=== PATIENT | male | born 1945 | race Caucasian/White ===

== ENCOUNTER 2022-11-30 11:31 | Day surgery (SDC) | payer OTHER ==
[~2022-11-30 11:31] MED LIST: CARBOPLATIN IVPB ONE; DEXAMETHASONE SODIUM PHOSPHATE 10 MG in SODIUM CHLORIDE 50 ML IVPB ONE; ETOPOSIDE 190 MG in SODIUM CHLORIDE 0.9% 500 ML IV ONE; FOSAPREPITANT DIMEGLUMINE 150 MG in SODIUM CHLORIDE 145 ML IVPB ONE; PALONOSETRON HCL 0.25 MG/5 ML VIAL IVPUSH ONE; SODIUM CHLORIDE 250 ML IV ONE; SODIUM CHLORIDE IVPB ONE
[2022-11-30 13:12] LABS: BASO % 0.7 % (0-2.0); EOS % 0.5 % (0-4.5); HEMATOCRIT 35.5 % (35.4-49); HEMOGLOBIN 11.8 GM/dL (11.7-16.9); LYMPH % 11.5 % (8-40); MCH 30.7 pg (25.7-33.7); MCHC 33.2 g/dl (32.0-35.9); MEAN CELL VOLUME 92.4 fl (80-96); MEAN PLT VOLUME 7.3 fl (7.5-11.1); MONO % 13.9 % (3.8-10.2); NEUT % 73.4 % (42.8-82.8); PLATELET COUNT 440 10^3/uL (134-434); RBC 3.84 M/mm3 (4.00-5.60); RDW 14.3 % (11.9-15.9); WHITE BLOOD COUNT 10.5 K/mm3 (4.0-10.0)
[2022-11-30 13:43] LABS: CALCIUM 8.6 mg/dL (8.5-10.1)
[2022-11-30 13:44] LABS: ALBUMIN 3.1 g/dl (3.4-5.0); BLOOD UREA NITROGEN 24.6 mg/dL (7-18)
[2022-11-30 13:46] LABS: CREATININE 1.5 mg/dL (0.55-1.3)
[2022-11-30 13:47] LABS: BILIRUBIN,DIRECT 0.1 mg/dL (0.0-0.2)
[2022-11-30 13:48] LABS: BILIRUBIN,TOTAL 0.4 mg/dL (0.2-1); TOT PROT 6.9 g/dl (6.4-8.2)
[2022-11-30 18:57] VITALS: RESP 18; TEMP 98.7
[2022-11-30 19:10] VITALS: BP 119/62; PULSE 66
== END 2022-11-30 18:20 | disposition home or self-care (01) ==
LOC: JCHEMO 11:31 → J7W 11:35 → JCHEMO 18:20
PROVIDERS: ATTEND Internal Medicine Hematology & Oncology
DX: Z51.11 Encounter for antineoplastic chemotherapy (principal); C34.01 Malignant neoplasm of right main bronchus
CPT/HCPCS: 36415; 80048; 80076; 85025; 96367; 96375; 96413; 96417; J1453; J2469

== ENCOUNTER → 2022-12-01 18:15 | Day surgery (SDC) | payer OTHER ==
[~2022-12-01 18:15] MED LIST changes: -CARBOPLATIN IVPB ONE; -FOSAPREPITANT DIMEGLUMINE 150 MG in SODIUM CHLORIDE 145 ML IVPB ONE; -PALONOSETRON HCL 0.25 MG/5 ML VIAL IVPUSH ONE; -SODIUM CHLORIDE IVPB ONE
[2022-12-01 18:16] VITALS: TEMP 98.1
[2022-12-01 18:31] VITALS: BP 161/87; PULSE 66; RESP 18
== END | disposition home or self-care (01) ==
LOC: JONCCHEMO 18:15
PROVIDERS: ATTEND Internal Medicine Hematology & Oncology
DX: Z51.11 Encounter for antineoplastic chemotherapy (principal); C34.01 Malignant neoplasm of right main bronchus
CPT/HCPCS: 96375; 96413; 96415

== ENCOUNTER 2022-12-02 10:55 | Day surgery (SDC) | payer OTHER ==
[2022-12-02 12:33] VITALS: PULSE 73; RESP 20; TEMP 97.3
[2022-12-02 15:10] VITALS: BP 174/91
== END 2022-12-02 15:12 | disposition home or self-care (01) ==
LOC: JONCCHEMO 10:55 → J7W 10:56 → JONCCHEMO 15:12
PROVIDERS: ATTEND Internal Medicine Hematology & Oncology
DX: Z51.11 Encounter for antineoplastic chemotherapy (principal); C34.01 Malignant neoplasm of right main bronchus
CPT/HCPCS: 96367; 96413; 96415

== ENCOUNTER 2022-12-03 11:14 | Day surgery (SDC) | payer OTHER ==
[~2022-12-03 11:14] MED LIST changes: -DEXAMETHASONE SODIUM PHOSPHATE 10 MG in SODIUM CHLORIDE 50 ML IVPB ONE; -ETOPOSIDE 190 MG in SODIUM CHLORIDE 0.9% 500 ML IV ONE; +PEGFILGRASTIM-CBQV (UDENYCA) 6 MG/0.6 ML SYRINGE SQ ONE; -SODIUM CHLORIDE 250 ML IV ONE
[2022-12-03 16:20] VITALS: BP 155/87; PULSE 79; RESP 20; TEMP 97.4
== END 2022-12-03 11:45 | disposition home or self-care (01) ==
LOC: JONCCHEMO 11:14 → J7W 11:15 → JONCCHEMO 11:45
PROVIDERS: ATTEND Internal Medicine Hematology & Oncology
PROC: 3E013GC Introduction of Other Therapeutic Substance into Subcutaneous Tissue, Percutaneous Approach (ICD-10-PCS; principal; 2022-12-03)
DX: C34.01 Malignant neoplasm of right main bronchus (principal); Z76.89 Persons encountering health services in other specified circumstances
CPT/HCPCS: 96372; Q5111

== ENCOUNTER 2022-12-21 08:34 | Day surgery (SDC) | payer OTHER ==
[2022-12-21] MEDS ORDERED: SODIUM CHLORIDE 250 ML IV ONE (09:00)
[2022-12-21] MEDS ORDERED: FOSAPREPITANT DIMEGLUMINE 150 MG in SODIUM CHLORIDE 145 ML IVPB ONE (09:30)
[2022-12-21] MEDS ORDERED: DEXAMETHASONE SODIUM PHOSPHATE 10 MG in SODIUM CHLORIDE 50 ML IVPB ONE (09:30)
[2022-12-21] MEDS ORDERED: PALONOSETRON HCL 0.25 MG/5 ML VIAL IVPUSH ONE (09:30)
[2022-12-21] MEDS ORDERED: CARBOPLATIN IVPB ONE (10:00)
[2022-12-21] MEDS ORDERED: SODIUM CHLORIDE IVPB ONE (10:00)
[2022-12-21] MEDS ORDERED: ETOPOSIDE 190 MG in SODIUM CHLORIDE 0.9% 500 ML IV ONE (10:30)
[2022-12-21 11:04] LABS: HEMATOCRIT 33.5 % (35.4-49); HEMOGLOBIN 11.5 GM/dL (11.7-16.9); MCH 29.9 pg (25.7-33.7); MCHC 34.2 g/dl (32.0-35.9); MEAN CELL VOLUME 87.3 fl (80-96); MEAN PLT VOLUME 6.7 fl (7.5-11.1); PLATELET COUNT 308 10^3/uL (134-434); RBC 3.84 M/mm3 (4.00-5.60); RDW 14.1 % (11.9-15.9)
[2022-12-21 11:25] LABS: CALCIUM 8.3 mg/dL (8.5-10.1)
[2022-12-21 11:26] LABS: ALBUMIN 3.4 g/dl (3.4-5.0); BLOOD UREA NITROGEN 16.4 mg/dL (7-18)
[2022-12-21 11:29] LABS: BILIRUBIN,DIRECT 0.1 mg/dL (0.0-0.2); CREATININE 1.3 mg/dL (0.55-1.3)
[2022-12-21 11:31] LABS: BILIRUBIN,TOTAL 0.3 mg/dL (0.2-1); TOT PROT 6.5 g/dl (6.4-8.2)
[2022-12-21 11:33] LABS: ANISOCYTOSIS 1+; MACROCYTOSIS 0
[2022-12-21 15:42] VITALS: TEMP 98
[2022-12-21 16:30] VITALS: BP 140/85; PULSE 83; RESP 18
== END 2022-12-21 16:00 | disposition home or self-care (01) ==
LOC: JONCCHEMO 08:34
PROVIDERS: ATTEND Internal Medicine Hematology & Oncology
DX: Z51.11 Encounter for antineoplastic chemotherapy (principal); C34.01 Malignant neoplasm of right main bronchus
CPT/HCPCS: 36415; 80048; 80076; 85025; 96375; 96413; 96415; 96417; J1453; J2469

== ENCOUNTER 2022-12-22 13:06 | Day surgery (SDC) | payer OTHER ==
[~2022-12-22 13:06] MED LIST changes: +DEXAMETHASONE SODIUM PHOSPHATE 10 MG in SODIUM CHLORIDE 50 ML IVPB ONE; +ETOPOSIDE 190 MG in SODIUM CHLORIDE 0.9% 500 ML IV ONE; -PEGFILGRASTIM-CBQV (UDENYCA) 6 MG/0.6 ML SYRINGE SQ ONE; +SODIUM CHLORIDE 250 ML IV ONE
[2022-12-22 15:45] VITALS: TEMP 97.6
[2022-12-22 15:51] VITALS: BP 162/81; PULSE 81; RESP 20
== END 2022-12-22 14:30 | disposition home or self-care (01) ==
LOC: JONCCHEMO 13:06
PROVIDERS: ATTEND Internal Medicine Hematology & Oncology
DX: Z51.11 Encounter for antineoplastic chemotherapy (principal); C34.01 Malignant neoplasm of right main bronchus
CPT/HCPCS: 96375; 96413; 96415

== ENCOUNTER 2022-12-23 10:21 | Day surgery (SDC) | payer OTHER ==
[2022-12-23 17:21] VITALS: BP 148/77; PULSE 76; RESP 18; TEMP 97.7
[2022-12-23] MEDS ORDERED: PORTA CATH FLUSH 10 ML IVPUSH PRN (17:21)
== END 2022-12-23 14:00 | disposition home or self-care (01) ==
LOC: JONCCHEMO 10:21
PROVIDERS: ATTEND Internal Medicine Hematology & Oncology
DX: Z51.11 Encounter for antineoplastic chemotherapy (principal); C34.01 Malignant neoplasm of right main bronchus
CPT/HCPCS: 96367; 96413; 96415

== ENCOUNTER 2022-12-24 10:21 | Day surgery (SDC) | payer OTHER ==
[~2022-12-24 10:21] MED LIST changes: -DEXAMETHASONE SODIUM PHOSPHATE 10 MG in SODIUM CHLORIDE 50 ML IVPB ONE; -ETOPOSIDE 190 MG in SODIUM CHLORIDE 0.9% 500 ML IV ONE; +PEGFILGRASTIM-CBQV (UDENYCA) 6 MG/0.6 ML SYRINGE SQ ONE; -SODIUM CHLORIDE 250 ML IV ONE
[2022-12-24 16:35] VITALS: BP 119/77; PULSE 99; RESP 20; TEMP 97.8
== END 2022-12-24 10:55 | disposition home or self-care (01) ==
LOC: JONCCHEMO 10:21
PROVIDERS: ATTEND Internal Medicine Hematology & Oncology
PROC: 3E013GC Introduction of Other Therapeutic Substance into Subcutaneous Tissue, Percutaneous Approach (ICD-10-PCS; principal; 2022-12-24)
DX: C34.01 Malignant neoplasm of right main bronchus (principal); Z76.89 Persons encountering health services in other specified circumstances
CPT/HCPCS: 96372; Q5111

== ENCOUNTER 2023-01-01 08:51 | Inpatient (IN) | payer OTHER ==
[2023-01-01] MEDS ORDERED: ACETAMINOPHEN 1000 MG/100 ML BAG IVPB ONE ×2 (10:13→18:00)
[2023-01-01] MEDS ORDERED: ACETAMINOPHEN INJECTION 100 ML IVPB ONE ×2 (10:17→17:13)
[2023-01-01] MEDS ORDERED: PIPERACILLIN/TAZOB 4.5 GM 4.5 GM in DEXTROSE 5%-WATER 100 ML IVPB ONE (10:51)
[2023-01-01] MEDS ORDERED: VANCOMYCIN/WATER 1,250 MG/250 ML BAG (RESTRICTED TO ID ONLY) IVPB ONE (10:53)
[2023-01-01 11:05] LABS: VENOUS BASE EXCESS -1.3 mmol/L (-2-2); VENOUS O2 SATURATION 29.3 % (70-80); VENOUS PCO2 42.4 mmHg (38-52); VENOUS PH 7.369 (7.310-7.410)
[2023-01-01 11:09] LABS: HEMATOCRIT 26.6 % (35.4-49); HEMOGLOBIN 8.9 GM/dL (11.7-16.9); MCH 29.6 pg (25.7-33.7); MCHC 33.4 g/dl (32.0-35.9); MEAN CELL VOLUME 88.7 fl (80-96); MEAN PLT VOLUME 7.4 fl (7.5-11.1)
[2023-01-01 11:15] LABS: INR 1.43 (0.83-1.09); PROTHROMBIN TIME (PATIENT) 16.5 SEC (9.7-13.0)
[2023-01-01 11:16] LABS: PLATELET COUNT 30 10^3/uL (134-434); WHITE BLOOD COUNT 1.1 K/mm3 (4.0-10.0)
[2023-01-01 11:18] LABS: ACTIVATED PTT 28.9 SECONDS (25.2-36.5)
[2023-01-01] MEDS ORDERED: VANCOMYCIN/WATER FOR INJ (PEG) 1,000 MG/200 ML BAG IVPB ONE (11:23)
[2023-01-01] MEDS ORDERED: PIPERACILLIN/TAZOB 4.5 GM 4.5 GM/100 ML BAG IVPB ONE (11:23)
[2023-01-01 11:26] LABS: CHLORIDE 101 mmol/L (98-107); SODIUM 136 mmol/L (136-145)
[2023-01-01 11:29] LABS: ALBUMIN 3.2 g/dl (3.4-5.0); ANION GAP 11 MMOL/L (8-16); CO2 24 mmol/L (21-32); GLUCOSE,RANDOM 111 mg/dL (74-106)
[2023-01-01 11:32] LABS: CREATININE 1.6 mg/dL (0.55-1.3); SGOT/AST 6 U/L (15-37); SGPT/ALT 15 U/L (13-61)
[2023-01-01 11:33] LABS: BILIRUBIN,TOTAL 0.8 mg/dL (0.2-1); TOT PROT 6.2 g/dl (6.4-8.2)
[2023-01-01 11:35] LABS: ALK PHOS 75 U/L (45-117)
[2023-01-01] MEDS ORDERED: VANCOMYCIN/WATER 1250 MG 1,250 MG/250 ML BAG IVPB ONE (11:39)
[2023-01-01] MEDS ORDERED: SODIUM CHLORIDE 0.9% 500 ML INFUS.BAG IV ONE (11:39)
[2023-01-01 12:25] LABS: ANISOCYTOSIS 0; HELMET CELLS 0; HOWELL-JOLLY BODIES 0; MACROCYTOSIS 0; OVALOCYTE 0; ROULEAU 0; SICKELED CELLS 0; TARGET CELLS 0; TEAR DROP CELLS 0; TOXIC GRANULATION 0
[2023-01-01 13:42] LABS: EPI CELLS 2 /uL (0-25.1); HYALINE CASTS 0 /uL (0-3.1); PH,URINE 5.5 (5.0-8.0); URINE APPEARANCE CLEAR; URINE BACTERIA 4 /uL (0-1359); URINE BILIRUBIN NEGATIVE (NEGATIVE); URINE COLOR YELLOW; URINE GLUCOSE (UA) NEGATIVE (NEGATIVE); URINE KETONE NEGATIVE (NEGATIVE); URINE LEUK ESTERASE NEGATIVE (NEGATIVE); URINE NITRITE NEGATIVE (NEGATIVE); URINE PROTEIN NEGATIVE (NEGATIVE); URINE RBC 34 /uL (0-23.9); URINE WBC 5 /uL (0-25.8)
[2023-01-01] MEDS ORDERED: AMPICILLIN - 2 GM in SODIUM CHLORIDE 100 ML IVPB ONE (13:56)
[2023-01-01] MEDS ORDERED: AMPICILLIN SODIUM 2 GM VIAL ONE (14:11)
[2023-01-01] MEDS ORDERED: ALBUTEROL SO4 HFA INHALER IH PRN (17:12)
[2023-01-01] MEDS ORDERED: LACTATED RINGERS SOLUTION 1,000 ML/1,000 ML INFUS.BAG IV SCH (17:30)
[2023-01-01] MEDS ORDERED: ACETAMINOPHEN 325 MG TABLET (FP) PO PRN (17:30)
[2023-01-01] MEDS ORDERED: oxyCODONE HCL 5 MG TABLET PO PRN (17:30)
[2023-01-01] MEDS ORDERED: HEPARIN NA (PORCINE) 5,000 UNITS/ML 1ML VIAL SQ SCH (22:00)
[2023-01-01] MEDS ORDERED: CEFEPIME 2 GM in DEXTROSE 5%-WATER 100 ML IVPB SCH (22:00)
[2023-01-01] MEDS: ATORVASTATIN CA 80 MG TABLET (FP) PO SCH (22:50)
[2023-01-01] MEDS: CEFEPIME 2 GM in DEXTROSE 5%-WATER 100 ML IVPB SCH (22:51)
[2023-01-01] MEDS: BUDESONIDE/FORMETEROL FUMARATE 160/4.5 mcg INHALER IH SCH (23:07)
[2023-01-01] MEDS ORDERED: TBO-FILGRASTIM 300 MCG/0.5 ML DISP.SYRINGE SQ ONE (23:42)
[2023-01-02 08:22] LABS: INR 1.46 (0.83-1.09); PROTHROMBIN TIME (PATIENT) 16.9 SEC (9.7-13.0)
[2023-01-02 08:24] LABS: ACTIVATED PTT 27.1 SECONDS (25.2-36.5)
[2023-01-02 08:35] LABS: HEMATOCRIT 21.6 % (35.4-49); HEMOGLOBIN 7.4 GM/dL (11.7-16.9); MCH 30.3 pg (25.7-33.7); MCHC 34.4 g/dl (32.0-35.9); MEAN CELL VOLUME 87.8 fl (80-96); MEAN PLT VOLUME 7.4 fl (7.5-11.1); RBC 2.46 M/mm3 (4.00-5.60); WHITE BLOOD COUNT 2.7 K/mm3 (4.0-10.0)
[2023-01-02 08:50] LABS: CALCIUM 8.2 mg/dL (8.5-10.1)
[2023-01-02 08:51] LABS: BLOOD UREA NITROGEN 20.2 mg/dL (7-18)
[2023-01-02 08:54] LABS: CREATININE 1.2 mg/dL (0.55-1.3); PHOSPHOROUS 2.4 mg/dL (2.5-4.9); PLATELET COUNT 15 10^3/uL (134-434)
[2023-01-02 08:55] LABS: BILIRUBIN,TOTAL 0.4 mg/dL (0.2-1); TOT PROT 5.2 g/dl (6.4-8.2)
[2023-01-02 09:02] LABS: ALBUMIN 2.6 g/dl (3.4-5.0)
[2023-01-02] MEDS: LISINOPRIL 20 MG TABLET PO SCH (09:28)
[2023-01-02] MEDS: FINASTERIDE 5 MG TABLET (FP) PO SCH (09:28)
[2023-01-02] MEDS: CEFEPIME 2 GM in DEXTROSE 5%-WATER 100 ML IVPB SCH (09:28)
[2023-01-02] MEDS: TAMSULOSIN HCL 0.4 MG CAP PO SCH (09:28)
[2023-01-02] MEDS: amLODIPine BESYLATE 10 MG TABLET (FP) PO SCH (09:28)
[2023-01-02] MEDS: SENNOSIDES 8.6MG TABLET (FP) PO SCH (09:28)
[2023-01-02] MEDS: BUDESONIDE/FORMETEROL FUMARATE 160/4.5 mcg INHALER IH SCH ×2 (09:29→21:58)
[2023-01-02 11:00] LABS: ANISOCYTOSIS 0; HELMET CELLS 0; HOWELL-JOLLY BODIES 0; MACROCYTOSIS 0; OVALOCYTE 0; ROULEAU 0; SICKELED CELLS 0; TARGET CELLS 0; TEAR DROP CELLS 0; TOXIC GRANULATION 0
[2023-01-02] MEDS: PANTOPRAZOLE SODIUM 40 MG VIAL IVPUSH SCH ×2 (13:22→21:58)
[2023-01-02] MEDS: AMINO ACIDS 4.25%/D5W 1,000 ML IV SCH (16:19)
[2023-01-02] MEDS: CEFEPIME 1 GM in DEXTROSE 5%-WATER 100 ML IVPB SCH (17:23)
[2023-01-02] MEDS: NYSTATIN 500,000 UNITS/5 ML SUSPENSION PO SCH ×2 (17:24→23:00)
[2023-01-02 20:31] LABS: BASO % 0.6 % (0-2.0); EOS % 0.6 % (0-4.5); HEMATOCRIT 21.7 % (35.4-49); HEMOGLOBIN 7.3 GM/dL (11.7-16.9); MCH 30.1 pg (25.7-33.7); MCHC 33.8 g/dl (32.0-35.9); MEAN PLT VOLUME 7.3 fl (7.5-11.1); MONO % 8.5 % (3.8-10.2); NEUT % 85.3 % (42.8-82.8); RBC 2.44 M/mm3 (4.00-5.60); RDW 14.7 % (11.9-15.9); WHITE BLOOD COUNT 4.7 K/mm3 (4.0-10.0)
[2023-01-02 20:42] LABS: PLATELET COUNT 14 10^3/uL (134-434)
[2023-01-02 20:51] LABS: ANISOCYTOSIS 2+; MACROCYTOSIS 1+; TEAR DROP CELLS 1+
[2023-01-02 20:52] LABS: TOXIC GRANULATION 1+
[2023-01-02] MEDS ORDERED: TBO-FILGRASTIM 300 MCG/0.5 ML DISP.SYRINGE SQ SCH (21:00)
[2023-01-02] MEDS: ATORVASTATIN CA 80 MG TABLET (FP) PO SCH (21:58)
[2023-01-03] MEDS: CEFEPIME 1 GM in DEXTROSE 5%-WATER 100 ML IVPB SCH ×3 (01:51→17:29)
[2023-01-03 04:06] LABS: BASO % 0.4 % (0-2.0); EOS % 0.7 % (0-4.5); HEMATOCRIT 24.1 % (35.4-49); HEMOGLOBIN 8.1 GM/dL (11.7-16.9); LYMPH % 4.4 % (8-40); MCH 29.8 pg (25.7-33.7); MCHC 33.5 g/dl (32.0-35.9); MEAN PLT VOLUME 7.6 fl (7.5-11.1); NEUT % 85.5 % (42.8-82.8); WHITE BLOOD COUNT 5.6 K/mm3 (4.0-10.0)
[2023-01-03 04:12] LABS: PLATELET COUNT 14 10^3/uL (134-434)
[2023-01-03 04:19] LABS: INR 1.24 (0.83-1.09); PROTHROMBIN TIME (PATIENT) 14.3 SEC (9.7-13.0)
[2023-01-03 04:29] LABS: CALCIUM 7.9 mg/dL (8.5-10.1)
[2023-01-03 04:30] LABS: BLOOD UREA NITROGEN 20.7 mg/dL (7-18)
[2023-01-03 04:33] LABS: CREATININE 1.4 mg/dL (0.55-1.3)
[2023-01-03] MEDS: NYSTATIN 500,000 UNITS/5 ML SUSPENSION PO SCH ×3 (06:19→17:30)
[2023-01-03] MEDS: AMINO ACIDS 4.25%/D5W 1,000 ML IV SCH ×3 (06:27→18:41)
[2023-01-03 06:49] LABS: ANISOCYTOSIS 2+; MACROCYTOSIS 0; OVALOCYTE 2+; TOXIC GRANULATION 2+
[2023-01-03] MEDS: TAMSULOSIN HCL 0.4 MG CAP PO SCH (10:11)
[2023-01-03] MEDS: FINASTERIDE 5 MG TABLET (FP) PO SCH (10:11)
[2023-01-03] MEDS: PANTOPRAZOLE SODIUM 40 MG VIAL IVPUSH SCH ×2 (10:11→21:01)
[2023-01-03] MEDS: MULTIVITAMINS (DAILY MVI) TABLET (FP) PO SCH (10:11)
[2023-01-03] MEDS: amLODIPine BESYLATE 10 MG TABLET (FP) PO SCH (10:11)
[2023-01-03] MEDS: LISINOPRIL 20 MG TABLET PO SCH (10:12)
[2023-01-03] MEDS: SENNOSIDES 8.6MG TABLET (FP) PO SCH (10:12)
[2023-01-03] MEDS: BUDESONIDE/FORMETEROL FUMARATE 160/4.5 mcg INHALER IH SCH ×2 (10:39→21:05)
[2023-01-03] MEDS: POLYETHYLENE GLYCOL (HEALTHYLAX) 3350 17 GM PACKET PO SCH ×2 (11:40→21:01)
[2023-01-03 14:02] LABS: HEMATOCRIT 23.8 % (35.4-49); HEMOGLOBIN 8.2 GM/dL (11.7-16.9); MCH 30.2 pg (25.7-33.7); MCHC 34.3 g/dl (32.0-35.9); MEAN CELL VOLUME 88.2 fl (80-96); MEAN PLT VOLUME 8.1 fl (7.5-11.1); RDW 15.2 % (11.9-15.9); WHITE BLOOD COUNT 6.6 K/mm3 (4.0-10.0)
[2023-01-03 14:11] LABS: PLATELET COUNT 16 10^3/uL (134-434)
[2023-01-03 14:12] LABS: INR 1.29 (0.83-1.09); PROTHROMBIN TIME (PATIENT) 14.9 SEC (9.7-13.0)
[2023-01-03 14:24] LABS: CALCIUM 7.9 mg/dL (8.5-10.1)
[2023-01-03 14:25] LABS: ALBUMIN 2.8 g/dl (3.4-5.0); BLOOD UREA NITROGEN 16.5 mg/dL (7-18); MAGNESIUM 1.8 mg/dL (1.8-2.4)
[2023-01-03 14:28] LABS: CREATININE 1.2 mg/dL (0.55-1.3)
[2023-01-03 14:30] LABS: BILIRUBIN,TOTAL 0.3 mg/dL (0.2-1); TOT PROT 5.5 g/dl (6.4-8.2)
[2023-01-03 16:02] LABS: ANISOCYTOSIS 1+; MACROCYTOSIS 0
[2023-01-03] MEDS: ATORVASTATIN CA 80 MG TABLET (FP) PO SCH (21:01)
[2023-01-03] MEDS: SENNOSIDES 8.8 MG/5 ML SYRUP PO SCH (21:04)
[2023-01-04] MEDS: NYSTATIN 500,000 UNITS/5 ML SUSPENSION PO SCH ×5 (01:01→23:35)
[2023-01-04] MEDS: CEFEPIME 1 GM in DEXTROSE 5%-WATER 100 ML IVPB SCH ×2 (01:13→09:50)
[2023-01-04] MEDS: AMINO ACIDS 4.25%/D5W 1,000 ML IV SCH ×2 (03:27→17:36)
[2023-01-04 08:35] LABS: INR 1.26 (0.83-1.09); PROTHROMBIN TIME (PATIENT) 14.6 SEC (9.7-13.0)
[2023-01-04 08:44] LABS: HEMATOCRIT 21.5 % (35.4-49); HEMOGLOBIN 7.3 GM/dL (11.7-16.9); MCH 30.1 pg (25.7-33.7); MCHC 34.2 g/dl (32.0-35.9); MEAN CELL VOLUME 87.9 fl (80-96); MEAN PLT VOLUME 8.8 fl (7.5-11.1); RBC 2.44 M/mm3 (4.00-5.60); RDW 14.8 % (11.9-15.9); WHITE BLOOD COUNT 4.6 K/mm3 (4.0-10.0)
[2023-01-04 08:48] LABS: PLATELET COUNT 34 10^3/uL (134-434)
[2023-01-04 08:55] LABS: CALCIUM 7.7 mg/dL (8.5-10.1)
[2023-01-04 08:56] LABS: ALBUMIN 2.6 g/dl (3.4-5.0); BLOOD UREA NITROGEN 17.6 mg/dL (7-18); MAGNESIUM 1.7 mg/dL (1.8-2.4)
[2023-01-04 08:59] LABS: CREATININE 1.1 mg/dL (0.55-1.3)
[2023-01-04 09:00] LABS: BILIRUBIN,TOTAL 0.5 mg/dL (0.2-1); TOT PROT 5.3 g/dl (6.4-8.2)
[2023-01-04 09:20] LABS: ANISOCYTOSIS 0; MACROCYTOSIS 0
[2023-01-04] MEDS: PANTOPRAZOLE SODIUM 40 MG VIAL IVPUSH SCH ×2 (09:52→21:07)
[2023-01-04] MEDS: LISINOPRIL 20 MG TABLET PO SCH (09:52)
[2023-01-04] MEDS: FINASTERIDE 5 MG TABLET (FP) PO SCH (09:52)
[2023-01-04] MEDS: MULTIVITAMINS (DAILY MVI) TABLET (FP) PO SCH (09:52)
[2023-01-04] MEDS: TAMSULOSIN HCL 0.4 MG CAP PO SCH (09:52)
[2023-01-04] MEDS: BUDESONIDE/FORMETEROL FUMARATE 160/4.5 mcg INHALER IH SCH ×2 (09:53→21:06)
[2023-01-04] MEDS: POLYETHYLENE GLYCOL (HEALTHYLAX) 3350 17 GM PACKET PO SCH ×2 (12:41→21:05)
[2023-01-04] MEDS: amLODIPine BESYLATE 10 MG TABLET (FP) PO SCH (12:41)
[2023-01-04] MEDS: ATORVASTATIN CA 80 MG TABLET (FP) PO SCH (21:05)
[2023-01-04] MEDS: SENNOSIDES 8.8 MG/5 ML SYRUP PO SCH (21:06)
[2023-01-05] MEDS: AMINO ACIDS 4.25%/D5W 1,000 ML IV SCH ×2 (05:54→16:16)
[2023-01-05] MEDS: NYSTATIN 500,000 UNITS/5 ML SUSPENSION PO SCH ×3 (06:13→17:10)
[2023-01-05 09:03] LABS: HEMATOCRIT 22.9 % (35.4-49); HEMOGLOBIN 7.6 GM/dL (11.7-16.9); MCH 29.3 pg (25.7-33.7); MCHC 33.3 g/dl (32.0-35.9); MEAN CELL VOLUME 88.1 fl (80-96); MEAN PLT VOLUME 8.2 fl (7.5-11.1); WHITE BLOOD COUNT 4.7 K/mm3 (4.0-10.0)
[2023-01-05] MEDS: TAMSULOSIN HCL 0.4 MG CAP PO SCH (09:06)
[2023-01-05 09:08] LABS: PLATELET COUNT 25 10^3/uL (134-434)
[2023-01-05 09:09] LABS: INR 1.25 (0.83-1.09); PROTHROMBIN TIME (PATIENT) 14.5 SEC (9.7-13.0)
[2023-01-05 09:27] LABS: CALCIUM 7.8 mg/dL (8.5-10.1)
[2023-01-05 09:28] LABS: ALBUMIN 2.7 g/dl (3.4-5.0); BLOOD UREA NITROGEN 21.9 mg/dL (7-18); MAGNESIUM 1.7 mg/dL (1.8-2.4)
[2023-01-05 09:32] LABS: BILIRUBIN,TOTAL 0.4 mg/dL (0.2-1)
[2023-01-05 09:33] LABS: TOT PROT 5.4 g/dl (6.4-8.2)
[2023-01-05 10:03] LABS: ANISOCYTOSIS 0; MACROCYTOSIS 0
[2023-01-05] MEDS: amLODIPine BESYLATE 10 MG TABLET (FP) PO SCH (11:24)
[2023-01-05] MEDS: POLYETHYLENE GLYCOL (HEALTHYLAX) 3350 17 GM PACKET PO SCH ×2 (11:24→22:44)
[2023-01-05] MEDS: BUDESONIDE/FORMETEROL FUMARATE 160/4.5 mcg INHALER IH SCH ×2 (11:25→22:44)
[2023-01-05] MEDS: MULTIVITAMINS (DAILY MVI) TABLET (FP) PO SCH (11:25)
[2023-01-05] MEDS: PANTOPRAZOLE SODIUM 40 MG VIAL IVPUSH SCH ×2 (11:25→22:44)
[2023-01-05] MEDS: FINASTERIDE 5 MG TABLET (FP) PO SCH (11:25)
[2023-01-05] MEDS: LISINOPRIL 20 MG TABLET PO SCH (11:25)
[2023-01-05] MEDS: ATORVASTATIN CA 80 MG TABLET (FP) PO SCH (22:44)
[2023-01-05] MEDS: SENNOSIDES 8.8 MG/5 ML SYRUP PO SCH (22:44)
[2023-01-06] MEDS: NYSTATIN 500,000 UNITS/5 ML SUSPENSION PO SCH ×5 (00:23→23:53)
[2023-01-06] MEDS: AMINO ACIDS 4.25%/D5W 1,000 ML IV SCH ×2 (03:55→15:59)
[2023-01-06] MEDS: TAMSULOSIN HCL 0.4 MG CAP PO SCH (08:21)
[2023-01-06 08:27] LABS: HEMATOCRIT 21.8 % (35.4-49); HEMOGLOBIN 7.4 GM/dL (11.7-16.9); MCH 29.6 pg (25.7-33.7); MEAN CELL VOLUME 87.2 fl (80-96); MEAN PLT VOLUME 7.9 fl (7.5-11.1); PLATELET COUNT 38 10^3/uL (134-434); RBC 2.49 M/mm3 (4.00-5.60); RDW 14.6 % (11.9-15.9)
[2023-01-06 08:50] LABS: ALBUMIN 2.8 g/dl (3.4-5.0); BLOOD UREA NITROGEN 23.6 mg/dL (7-18); CALCIUM 7.7 mg/dL (8.5-10.1); MAGNESIUM 1.7 mg/dL (1.8-2.4)
[2023-01-06 08:53] LABS: CREATININE 0.9 mg/dL (0.55-1.3)
[2023-01-06 08:55] LABS: BILIRUBIN,TOTAL 0.3 mg/dL (0.2-1); TOT PROT 5.5 g/dl (6.4-8.2)
[2023-01-06 10:20] LABS: ANISOCYTOSIS 0; MACROCYTOSIS 0
[2023-01-06] MEDS: amLODIPine BESYLATE 10 MG TABLET (FP) PO SCH (10:50)
[2023-01-06] MEDS: LISINOPRIL 20 MG TABLET PO SCH (10:50)
[2023-01-06] MEDS: PANTOPRAZOLE SODIUM 40 MG VIAL IVPUSH SCH ×2 (10:50→21:31)
[2023-01-06] MEDS: FINASTERIDE 5 MG TABLET (FP) PO SCH (10:50)
[2023-01-06] MEDS: POLYETHYLENE GLYCOL (HEALTHYLAX) 3350 17 GM PACKET PO SCH ×3 (10:50→21:35)
[2023-01-06] MEDS: MULTIVITAMINS (DAILY MVI) TABLET (FP) PO SCH (10:50)
[2023-01-06] MEDS: BUDESONIDE/FORMETEROL FUMARATE 160/4.5 mcg INHALER IH SCH ×2 (11:50→21:32)
[2023-01-06] MEDS: ATORVASTATIN CA 80 MG TABLET (FP) PO SCH (21:31)
[2023-01-06] MEDS: SENNOSIDES 8.8 MG/5 ML SYRUP PO SCH (21:32)
[2023-01-07] MEDS: AMINO ACIDS 4.25%/D5W 1,000 ML IV SCH ×2 (04:11→15:44)
[2023-01-07] MEDS: NYSTATIN 500,000 UNITS/5 ML SUSPENSION PO SCH ×4 (06:13→23:06)
[2023-01-07 07:32] LABS: HEMATOCRIT 21.2 % (35.4-49); HEMOGLOBIN 7.3 GM/dL (11.7-16.9); MCH 29.8 pg (25.7-33.7); MCHC 34.2 g/dl (32.0-35.9); MEAN CELL VOLUME 87.2 fl (80-96); MEAN PLT VOLUME 8.2 fl (7.5-11.1); PLATELET COUNT 52 10^3/uL (134-434); RBC 2.43 M/mm3 (4.00-5.60); RDW 14.8 % (11.9-15.9); WHITE BLOOD COUNT 5.1 K/mm3 (4.0-10.0)
[2023-01-07 08:21] LABS: CALCIUM 7.9 mg/dL (8.5-10.1)
[2023-01-07 08:22] LABS: ALBUMIN 2.7 g/dl (3.4-5.0); BLOOD UREA NITROGEN 23.3 mg/dL (7-18)
[2023-01-07 08:25] LABS: CREATININE 0.9 mg/dL (0.55-1.3)
[2023-01-07 08:26] LABS: BILIRUBIN,TOTAL 0.3 mg/dL (0.2-1); TOT PROT 5.4 g/dl (6.4-8.2)
[2023-01-07 09:33] LABS: ANISOCYTOSIS 0; MACROCYTOSIS 0
[2023-01-07] MEDS: LISINOPRIL 20 MG TABLET PO SCH (09:54)
[2023-01-07] MEDS: TAMSULOSIN HCL 0.4 MG CAP PO SCH (09:54)
[2023-01-07] MEDS: PANTOPRAZOLE SODIUM 40 MG VIAL IVPUSH SCH ×2 (09:55→21:01)
[2023-01-07] MEDS: POLYETHYLENE GLYCOL (HEALTHYLAX) 3350 17 GM PACKET PO SCH ×2 (09:55→21:05)
[2023-01-07] MEDS: MULTIVITAMINS (DAILY MVI) TABLET (FP) PO SCH (09:55)
[2023-01-07] MEDS: amLODIPine BESYLATE 10 MG TABLET (FP) PO SCH (09:55)
[2023-01-07] MEDS: FINASTERIDE 5 MG TABLET (FP) PO SCH (09:55)
[2023-01-07] MEDS: BUDESONIDE/FORMETEROL FUMARATE 160/4.5 mcg INHALER IH SCH ×2 (09:55→21:05)
[2023-01-07] MEDS ORDERED: FLUCONAZOLE 150 MG TABLET PO ONE (17:50)
[2023-01-07] MEDS ORDERED: LISINOPRIL 20 MG TABLET PO SCH (18:03)
[2023-01-07] MEDS ORDERED: TRIMETHOBENZAMIDE HCL 200MG/2ML INJ IM ONE (20:28)
[2023-01-07] MEDS ORDERED: ACETAMINOPHEN 1000 MG/100 ML BAG IVPB ONE (20:48)
[2023-01-07] MEDS: ATORVASTATIN CA 80 MG TABLET (FP) PO SCH (21:05)
[2023-01-07] MEDS: SENNOSIDES 8.8 MG/5 ML SYRUP PO SCH (21:05)
[2023-01-08] MEDS: AMINO ACIDS 4.25%/D5W 1,000 ML IV SCH ×2 (02:53→05:23)
[2023-01-08] MEDS: NYSTATIN 500,000 UNITS/5 ML SUSPENSION PO SCH ×3 (06:16→17:16)
[2023-01-08 07:54] LABS: BASO % 0.4 % (0-2.0); EOS % 1.6 % (0-4.5); HEMATOCRIT 21.2 % (35.4-49); HEMOGLOBIN 7.4 GM/dL (11.7-16.9); LYMPH % 10.6 % (8-40); MCHC 34.6 g/dl (32.0-35.9); MEAN CELL VOLUME 86.7 fl (80-96); MEAN PLT VOLUME 8.1 fl (7.5-11.1); MONO % 19.1 % (3.8-10.2); NEUT % 68.3 % (42.8-82.8); PLATELET COUNT 76 10^3/uL (134-434); RBC 2.45 M/mm3 (4.00-5.60); RDW 14.7 % (11.9-15.9); WHITE BLOOD COUNT 4.7 K/mm3 (4.0-10.0)
[2023-01-08 08:31] LABS: ALBUMIN 2.8 g/dl (3.4-5.0); CALCIUM 7.9 mg/dL (8.5-10.1)
[2023-01-08 08:35] LABS: CREATININE 0.9 mg/dL (0.55-1.3)
[2023-01-08 08:36] LABS: BILIRUBIN,TOTAL 0.3 mg/dL (0.2-1); TOT PROT 5.6 g/dl (6.4-8.2)
[2023-01-08 08:39] LABS: MAGNESIUM 1.6 mg/dL (1.8-2.4)
[2023-01-08] MEDS ORDERED: POTASSIUM CHLORIDE 20 MEQ in AMINO ACIDS 4.25%/D5W 1,000 ML IV SCH (09:30)
[2023-01-08] MEDS: POLYETHYLENE GLYCOL (HEALTHYLAX) 3350 17 GM PACKET PO SCH ×2 (10:33→21:50)
[2023-01-08] MEDS: FINASTERIDE 5 MG TABLET (FP) PO SCH (11:26)
[2023-01-08] MEDS: PANTOPRAZOLE SODIUM 40 MG VIAL IVPUSH SCH ×2 (11:26→21:51)
[2023-01-08] MEDS: POTASSIUM CHLORIDE TABS 20 MEQ TABLET.ER (FP) PO SCH ×2 (11:32→21:51)
[2023-01-08] MEDS: TAMSULOSIN HCL 0.4 MG CAP PO SCH (11:32)
[2023-01-08] MEDS: MULTIVITAMINS (DAILY MVI) TABLET (FP) PO SCH (11:33)
[2023-01-08] MEDS: BUDESONIDE/FORMETEROL FUMARATE 160/4.5 mcg INHALER IH SCH ×2 (11:33→21:52)
[2023-01-08] MEDS: LISINOPRIL 20 MG TABLET PO SCH (11:33)
[2023-01-08 16:58] VITALS: BMI 26.0
[2023-01-08] MEDS: SODIUM CHLORIDE 0.9%/KCL 20 MEQ/1,000 ML INFUS.BAG IV SCH (18:13)
[2023-01-08] MEDS ORDERED: METOPROLOL TARTRATE 5 MG/5 ML VIAL IVPUSH PRN (18:39)
[2023-01-08] MEDS ORDERED: ADENOSINE 6 MG/2 ML VIAL IVPUSH ONE (18:41)
[2023-01-08] MEDS ORDERED: ONDANSETRON 4 MG/2 ML VIAL IVPUSH PRN (18:42)
[2023-01-08] MEDS ORDERED: TRIMETHOBENZAMIDE HCL 200MG/2ML INJ IM PRN (18:44)
[2023-01-08] MEDS: SCOPOLAMINE HYDROBROMIDE 1 PATCH PATCH.TD72 TD SCH (18:56)
[2023-01-08] MEDS: ATORVASTATIN CA 80 MG TABLET (FP) PO SCH (21:51)
[2023-01-08] MEDS: SENNOSIDES 8.8 MG/5 ML SYRUP PO SCH (21:51)
[2023-01-08] MEDS: BANATROL PLUS POWDER PACKET PO SCH (21:52)
[2023-01-09] MEDS: NYSTATIN 500,000 UNITS/5 ML SUSPENSION PO SCH ×4 (00:41→17:04)
[2023-01-09] MEDS: BANATROL PLUS POWDER PACKET PO SCH ×3 (05:59→21:14)
[2023-01-09] MEDS: METOCLOPRAMIDE HCL INJECTION 10 MG/2 ML VIAL IVPUSH SCH ×4 (06:56→19:49)
[2023-01-09] MEDS: TAMSULOSIN HCL 0.4 MG CAP PO SCH (09:31)
[2023-01-09] MEDS: AMINO ACIDS/PROTEIN HYDROLYS 30 ML LIQUID.PKT PO SCH ×2 (09:31→17:04)
[2023-01-09] MEDS: FINASTERIDE 5 MG TABLET (FP) PO SCH (09:31)
[2023-01-09] MEDS: MULTIVITAMINS (DAILY MVI) TABLET (FP) PO SCH (09:31)
[2023-01-09] MEDS: BUDESONIDE/FORMETEROL FUMARATE 160/4.5 mcg INHALER IH SCH ×2 (09:31→21:14)
[2023-01-09] MEDS: POLYETHYLENE GLYCOL (HEALTHYLAX) 3350 17 GM PACKET PO SCH ×2 (09:31→21:14)
[2023-01-09] MEDS: PANTOPRAZOLE SODIUM 40 MG VIAL IVPUSH SCH ×3 (09:31→21:14)
[2023-01-09 11:09] LABS: BASO % 0.3 % (0-2.0); EOS % 1.2 % (0-4.5); HEMATOCRIT 22.1 % (35.4-49); HEMOGLOBIN 7.6 GM/dL (11.7-16.9); LYMPH % 10.1 % (8-40); MCHC 34.3 g/dl (32.0-35.9); MEAN CELL VOLUME 87.4 fl (80-96); MEAN PLT VOLUME 7.9 fl (7.5-11.1); MONO % 18.9 % (3.8-10.2); NEUT % 69.5 % (42.8-82.8); PLATELET COUNT 111 10^3/uL (134-434); RBC 2.52 M/mm3 (4.00-5.60); RDW 14.7 % (11.9-15.9); RETICULOCYTES 2.79 % (0.5-1.5); WHITE BLOOD COUNT 4.7 K/mm3 (4.0-10.0)
[2023-01-09 12:57] LABS: CALCIUM 7.9 mg/dL (8.5-10.1)
[2023-01-09 12:58] LABS: BLOOD UREA NITROGEN 19.9 mg/dL (7-18)
[2023-01-09 13:01] LABS: CREATININE 1.1 mg/dL (0.55-1.3)
[2023-01-09] MEDS: SODIUM CHLORIDE 0.9%/KCL 20 MEQ/1,000 ML INFUS.BAG IV SCH (17:04)
[2023-01-09] MEDS: ATORVASTATIN CA 80 MG TABLET (FP) PO SCH (21:14)
[2023-01-09] MEDS: SENNOSIDES 8.8 MG/5 ML SYRUP PO SCH (21:14)
[2023-01-10] MEDS: NYSTATIN 500,000 UNITS/5 ML SUSPENSION PO SCH ×5 (00:20→17:19)
[2023-01-10] MEDS: BANATROL PLUS POWDER PACKET PO SCH ×3 (05:13→22:14)
[2023-01-10] MEDS: TAMSULOSIN HCL 0.4 MG CAP PO SCH (08:07)
[2023-01-10] MEDS: AMINO ACIDS/PROTEIN HYDROLYS 30 ML LIQUID.PKT PO SCH ×2 (08:07→17:19)
[2023-01-10 08:27] LABS: BASO % 0.5 % (0-2.0); EOS % 1.9 % (0-4.5); HEMATOCRIT 21.8 % (35.4-49); HEMOGLOBIN 7.4 GM/dL (11.7-16.9); LYMPH % 12.2 % (8-40); MCH 29.8 pg (25.7-33.7); MEAN CELL VOLUME 87.7 fl (80-96); MEAN PLT VOLUME 7.5 fl (7.5-11.1); MONO % 14.8 % (3.8-10.2); NEUT % 70.6 % (42.8-82.8); PLATELET COUNT 134 10^3/uL (134-434); RBC 2.49 M/mm3 (4.00-5.60); RDW 14.9 % (11.9-15.9); WHITE BLOOD COUNT 3.5 K/mm3 (4.0-10.0)
[2023-01-10 09:06] LABS: ALBUMIN 2.7 g/dl (3.4-5.0); BLOOD UREA NITROGEN 20.7 mg/dL (7-18); CALCIUM 8.1 mg/dL (8.5-10.1)
[2023-01-10 09:09] LABS: CREATININE 1.2 mg/dL (0.55-1.3)
[2023-01-10 09:10] LABS: BILIRUBIN,TOTAL 0.5 mg/dL (0.2-1); TOT PROT 5.6 g/dl (6.4-8.2)
[2023-01-10] MEDS: MULTIVITAMINS (DAILY MVI) TABLET (FP) PO SCH (10:16)
[2023-01-10] MEDS: PANTOPRAZOLE SODIUM 40 MG VIAL IVPUSH SCH ×2 (10:16→22:14)
[2023-01-10] MEDS: FINASTERIDE 5 MG TABLET (FP) PO SCH (10:16)
[2023-01-10] MEDS: POLYETHYLENE GLYCOL (HEALTHYLAX) 3350 17 GM PACKET PO SCH ×2 (10:16→22:14)
[2023-01-10] MEDS: BUDESONIDE/FORMETEROL FUMARATE 160/4.5 mcg INHALER IH SCH ×2 (10:18→22:17)
[2023-01-10] MEDS: SODIUM CHLORIDE 0.9%/KCL 20 MEQ/1,000 ML INFUS.BAG IV SCH ×2 (10:28→18:24)
[2023-01-10 14:09] LABS: MAGNESIUM 1.7 mg/dL (1.8-2.4)
[2023-01-10] MEDS: SENNOSIDES 8.8 MG/5 ML SYRUP PO SCH (22:14)
[2023-01-10] MEDS: ATORVASTATIN CA 80 MG TABLET (FP) PO SCH (22:14)
[2023-01-11] MEDS: NYSTATIN 500,000 UNITS/5 ML SUSPENSION PO SCH ×4 (01:30→18:41)
[2023-01-11] MEDS: BANATROL PLUS POWDER PACKET PO SCH ×3 (05:47→22:25)
[2023-01-11 08:15] LABS: BASO % 0.4 % (0-2.0); EOS % 2.1 % (0-4.5); HEMATOCRIT 21.2 % (35.4-49); HEMOGLOBIN 7.3 GM/dL (11.7-16.9); LYMPH % 14.4 % (8-40); MCH 30.3 pg (25.7-33.7); MCHC 34.4 g/dl (32.0-35.9); MEAN CELL VOLUME 88.2 fl (80-96); MEAN PLT VOLUME 7.1 fl (7.5-11.1); NEUT % 65.1 % (42.8-82.8); PLATELET COUNT 172 10^3/uL (134-434); RDW 15.4 % (11.9-15.9); WHITE BLOOD COUNT 3.4 K/mm3 (4.0-10.0)
[2023-01-11 08:30] LABS: BLOOD UREA NITROGEN 18.8 mg/dL (7-18)
[2023-01-11 08:31] LABS: ALBUMIN 2.7 g/dl (3.4-5.0); CALCIUM 8.1 mg/dL (8.5-10.1)
[2023-01-11 08:34] LABS: CREATININE 1.2 mg/dL (0.55-1.3)
[2023-01-11 08:35] LABS: BILIRUBIN,TOTAL 0.2 mg/dL (0.2-1); TOT PROT 5.6 g/dl (6.4-8.2)
[2023-01-11 09:11] LABS: PHOSPHOROUS 3.2 mg/dL (2.5-4.9)
[2023-01-11] MEDS: TAMSULOSIN HCL 0.4 MG CAP PO SCH (10:24)
[2023-01-11] MEDS: MULTIVITAMINS (DAILY MVI) TABLET (FP) PO SCH (10:24)
[2023-01-11] MEDS: BUDESONIDE/FORMETEROL FUMARATE 160/4.5 mcg INHALER IH SCH ×2 (10:24→22:26)
[2023-01-11] MEDS: AMINO ACIDS/PROTEIN HYDROLYS 30 ML LIQUID.PKT PO SCH ×2 (10:24→18:41)
[2023-01-11] MEDS: POLYETHYLENE GLYCOL (HEALTHYLAX) 3350 17 GM PACKET PO SCH ×2 (10:24→22:26)
[2023-01-11] MEDS: LISINOPRIL 20 MG TABLET PO SCH (10:24)
[2023-01-11] MEDS: PANTOPRAZOLE SODIUM 40 MG VIAL IVPUSH SCH (10:24)
[2023-01-11] MEDS: FINASTERIDE 5 MG TABLET (FP) PO SCH (10:24)
[2023-01-11] MEDS: SCOPOLAMINE HYDROBROMIDE 1 PATCH PATCH.TD72 TD SCH (18:41)
[2023-01-11] MEDS: SODIUM CHLORIDE 0.9%/KCL 20 MEQ/1,000 ML INFUS.BAG IV SCH (18:41)
[2023-01-11] MEDS: ATORVASTATIN CA 80 MG TABLET (FP) PO SCH (22:26)
[2023-01-11] MEDS: SENNOSIDES 8.8 MG/5 ML SYRUP PO SCH (22:26)
[2023-01-11] MEDS: PANTOPRAZOLE 40 MG TABLET PO SCH (22:26)
[2023-01-12] MEDS: NYSTATIN 500,000 UNITS/5 ML SUSPENSION PO SCH ×3 (00:58→11:36)
[2023-01-12 04:55] VITALS: RESP 16
[2023-01-12] MEDS: BANATROL PLUS POWDER PACKET PO SCH (05:01)
[2023-01-12 07:22] LABS: HEMATOCRIT 24.7 % (35.4-49); HEMOGLOBIN 8.4 GM/dL (11.7-16.9); MCH 30.2 pg (25.7-33.7); MCHC 34.2 g/dl (32.0-35.9); MEAN CELL VOLUME 88.4 fl (80-96); MEAN PLT VOLUME 7.1 fl (7.5-11.1); PLATELET COUNT 206 10^3/uL (134-434); RBC 2.79 M/mm3 (4.00-5.60); RDW 15.7 % (11.9-15.9); WHITE BLOOD COUNT 4.1 K/mm3 (4.0-10.0)
[2023-01-12] MEDS: TAMSULOSIN HCL 0.4 MG CAP PO SCH (09:23)
[2023-01-12] MEDS: AMINO ACIDS/PROTEIN HYDROLYS 30 ML LIQUID.PKT PO SCH (09:23)
[2023-01-12] MEDS: POLYETHYLENE GLYCOL (HEALTHYLAX) 3350 17 GM PACKET PO SCH (09:23)
[2023-01-12 09:24] LABS: CALCIUM 8.3 mg/dL (8.5-10.1)
[2023-01-12] MEDS: BUDESONIDE/FORMETEROL FUMARATE 160/4.5 mcg INHALER IH SCH (09:24)
[2023-01-12] MEDS: PANTOPRAZOLE 40 MG TABLET PO SCH (09:24)
[2023-01-12] MEDS: FINASTERIDE 5 MG TABLET (FP) PO SCH (09:24)
[2023-01-12] MEDS: LISINOPRIL 20 MG TABLET PO SCH (09:24)
[2023-01-12] MEDS: MULTIVITAMINS (DAILY MVI) TABLET (FP) PO SCH (09:24)
[2023-01-12 09:26] LABS: ALBUMIN 2.7 g/dl (3.4-5.0); BLOOD UREA NITROGEN 16.2 mg/dL (7-18)
[2023-01-12 09:29] LABS: CREATININE 1.1 mg/dL (0.55-1.3)
[2023-01-12 09:31] LABS: BILIRUBIN,TOTAL 0.3 mg/dL (0.2-1); TOT PROT 5.6 g/dl (6.4-8.2)
[2023-01-12 09:55] LABS: ANISOCYTOSIS 1+; MACROCYTOSIS 1+
[2023-01-12] MEDS ORDERED: SODIUM CHLORIDE 0.9%/KCL 20 MEQ/1,000 ML INFUS.BAG IV SCH (11:54)
[2023-01-12 12:55] VITALS: BP 124/72; PULSE 82; TEMP 97.8
[2023-01-12] MEDS ORDERED: MIRTAZAPINE 15 MG TABLET (FP) PO SCH (22:00)
== END 2023-01-12 13:09 | disposition home or self-care (01) | DRG 660 ==
LOC: JER 08:51 → JERBED 13:30 → J4S 20:01
PROVIDERS: ADMIT Internal Medicine; ATTEND Nurse Practitioner Family
PROC: 30233N1 Transfusion of Nonautologous Red Blood Cells into Peripheral Vein, Percutaneous Approach (ICD-10-PCS; principal; 2023-01-01)
DX: D70.9 Neutropenia, unspecified (principal); C34.31 Malignant neoplasm of lower lobe, right bronchus or lung; N17.9 Acute kidney failure, unspecified; E46 Unspecified protein-calorie malnutrition; D61.818 Other pancytopenia; E87.1 Hypo-osmolality and hyponatremia; N40.0 Benign prostatic hyperplasia without lower urinary tract symptoms; D69.6 Thrombocytopenia, unspecified; K20.90 Esophagitis, unspecified without bleeding; R50.81 Fever presenting with conditions classified elsewhere; D64.9 Anemia, unspecified; E78.5 Hyperlipidemia, unspecified; N18.9 Chronic kidney disease, unspecified; E86.0 Dehydration; K59.00 Constipation, unspecified; I12.9 Hypertensive chronic kidney disease with stage 1 through stage 4 chronic kidney disease, or unspecified chronic kidney disease
CPT/HCPCS: 0241U-QW; 36415; 36430; 70450-TC; 71045-TC-FY; 71260-TC; 74177-TC; 74220-TC-FY; 80048; 80053; 80061; 81003; 82436; 82533; 82550; 82553; 82607; 82728; 82803; 83540; 83550; 83605; 83615; 83735; 83935; 84100; 84133; 84300; 84443; 84484; 85025; 85032; 85045; 85379; 85384; 85610; 85730; 86140; 86850; 86900; 86901; 86922; 87040; 87086; 93005; 93010; 97116-GP; 99285-25; J1447; J1644; P9058; Q9967

== ENCOUNTER 2023-03-19 04:47 | Inpatient (IN) | payer OTHER ==
[2023-03-19 04:53] VITALS: BMI 28.7
[2023-03-19 06:40] LABS: BASO % 0.6 % (0-2.0); EOS % 2.9 % (0-4.5); HEMATOCRIT 30.2 % (35.4-49); HEMOGLOBIN 10.3 GM/dL (11.7-16.9); LYMPH % 7.6 % (8-40); MCHC 34.1 g/dl (32.0-35.9); MEAN CELL VOLUME 90.9 fl (80-96); MEAN PLT VOLUME 7.4 fl (7.5-11.1); MONO % 8.4 % (3.8-10.2); NEUT % 80.5 % (42.8-82.8); PLATELET COUNT 337 10^3/uL (134-434); RBC 3.33 M/mm3 (4.00-5.60); RDW 13.6 % (11.9-15.9); WHITE BLOOD COUNT 8.7 K/mm3 (4.0-10.0)
[2023-03-19 06:46] LABS: INR 1.24 (0.83-1.09); PROTHROMBIN TIME (PATIENT) 14.4 SEC (9.7-13.0)
[2023-03-19 06:49] LABS: ACTIVATED PTT 26.5 SECONDS (25.2-36.5)
[2023-03-19 07:02] LABS: CALCIUM 9.1 mg/dL (8.5-10.1)
[2023-03-19 07:03] LABS: ALBUMIN 3.4 g/dl (3.4-5.0); BLOOD UREA NITROGEN 15.3 mg/dL (7-18)
[2023-03-19 07:06] LABS: CREATININE 1.3 mg/dL (0.55-1.3)
[2023-03-19 07:07] LABS: BILIRUBIN,TOTAL 0.6 mg/dL (0.2-1); TOT PROT 7.2 g/dl (6.4-8.2)
[2023-03-19] MEDS ORDERED: VANCOMYCIN 1,000 MG in DEXTROSE 5%-WATER - 250 ML IVPB ONE (07:07)
[2023-03-19] MEDS ORDERED: SODIUM CHLORIDE 0.9% 1000 ML INFUS.BAG IV ONE (07:07)
[2023-03-19] MEDS ORDERED: CEFEPIME HCL/D5W 1 GM/50 ML BAG IVPB ONE (07:08)
[2023-03-19] MEDS ORDERED: CEFEPIME 1 GM/100 ML BAG IVPB ONE (08:28)
[2023-03-19] MEDS ORDERED: VANCOMYCIN/WATER FOR INJ (PEG) 1,000 MG/200 ML BAG IVPB ONE ×2 (08:28→09:00)
[2023-03-19] MEDS ORDERED: ACETAMINOPHEN 325 MG TABLET (FP) PO PRN (08:33)
[2023-03-19] MEDS ORDERED: POLYETHYLENE GLYCOL (HEALTHYLAX) 3350 17 GM PACKET PO PRN (08:38)
[2023-03-19] MEDS ORDERED: LACTATED RINGERS SOLUTION 1,000 ML IV SCH (08:45)
[2023-03-19 08:57] LABS: URINE APPEARANCE CLEAR; URINE BILIRUBIN NEGATIVE (NEGATIVE); URINE COLOR YELLOW; URINE GLUCOSE (UA) NEGATIVE (NEGATIVE); URINE KETONE NEGATIVE (NEGATIVE); URINE LEUK ESTERASE NEGATIVE (NEGATIVE); URINE NITRITE NEGATIVE (NEGATIVE); URINE PROTEIN NEGATIVE (NEGATIVE); URINE UROBILINOGEN 0.2 mg/dL (0.2-1.0)
[2023-03-19] MEDS ORDERED: LISINOPRIL 20 MG TABLET ONE (09:00)
[2023-03-19] MEDS ORDERED: amLODIPine BESYLATE 5 MG TABLET (FP) ONE (09:00)
[2023-03-19] MEDS ORDERED: CEFEPIME 1 GM in DEXTROSE 5%-WATER 100 ML IVPB ONE (09:00)
[2023-03-19] MEDS ORDERED: PANTOPRAZOLE 40 MG TABLET PO ONE (09:00)
[2023-03-19] MEDS: LISINOPRIL 20 MG TABLET PO SCH (09:35)
[2023-03-19] MEDS: PANTOPRAZOLE 40 MG TABLET PO SCH (09:35)
[2023-03-19] MEDS: amLODIPine BESYLATE 5 MG TABLET (FP) PO SCH (09:35)
[2023-03-19] MEDS: FINASTERIDE 5 MG TABLET (FP) PO SCH (09:35)
[2023-03-19] MEDS: BUDESONIDE/FORMETEROL FUMARATE 160/4.5 mcg INHALER IH SCH ×2 (09:45→22:25)
[2023-03-19] MEDS ORDERED: PNEUMOC 20-VAL CONJ-DIP CRM/PF 0.5 ML SYRINGE IM ONE (15:45)
[2023-03-19] MEDS ORDERED: CEFEPIME 1 GM in DEXTROSE 5%-WATER 100 ML IVPB SCH (22:00)
[2023-03-19] MEDS ORDERED: SENNOSIDES 8.6MG TABLET (FP) PO SCH (22:00)
[2023-03-19] MEDS: ATORVASTATIN CA 80 MG TABLET (FP) PO SCH (22:22)
[2023-03-19] MEDS: SENNOSIDES 8.6MG TABLET (FP) PO SCH (22:26)
[2023-03-20 09:26] LABS: BASO % 0.7 % (0-2.0); EOS % 4.6 % (0-4.5); HEMATOCRIT 31.1 % (35.4-49); HEMOGLOBIN 10.7 GM/dL (11.7-16.9); LYMPH % 14.1 % (8-40); MCH 31.1 pg (25.7-33.7); MCHC 34.4 g/dl (32.0-35.9); MEAN CELL VOLUME 90.6 fl (80-96); MEAN PLT VOLUME 7.2 fl (7.5-11.1); MONO % 11.7 % (3.8-10.2); NEUT % 68.9 % (42.8-82.8); PLATELET COUNT 291 10^3/uL (134-434); RBC 3.43 M/mm3 (4.00-5.60); RDW 13.9 % (11.9-15.9); WHITE BLOOD COUNT 4.9 K/mm3 (4.0-10.0)
[2023-03-20 09:29] LABS: INR 1.28 (0.83-1.09); PROTHROMBIN TIME (PATIENT) 14.8 SEC (9.7-13.0)
[2023-03-20 09:30] LABS: ACTIVATED PTT 28.7 SECONDS (25.2-36.5)
[2023-03-20] MEDS: ENOXAPARIN NA (PORCINE) 40 MG/0.4 ML DISP.SYRIN SQ SCH (09:40)
[2023-03-20] MEDS: FINASTERIDE 5 MG TABLET (FP) PO SCH (09:41)
[2023-03-20] MEDS: TAMSULOSIN HCL 0.4 MG CAP PO SCH (09:41)
[2023-03-20] MEDS: LACTOBACILLUS ACIDOPHILUS 1 TABLET PO SCH (09:41)
[2023-03-20] MEDS: amLODIPine BESYLATE 5 MG TABLET (FP) PO SCH (09:41)
[2023-03-20] MEDS: PANTOPRAZOLE 40 MG TABLET PO SCH (09:42)
[2023-03-20] MEDS: CEFTRIAXONE 1 GM in DEXTROSE 5%-WATER - 50 ML IVPB SCH (09:42)
[2023-03-20] MEDS: LISINOPRIL 20 MG TABLET PO SCH (09:42)
[2023-03-20] MEDS: BUDESONIDE/FORMETEROL FUMARATE 160/4.5 mcg INHALER IH SCH ×2 (09:43→21:56)
[2023-03-20 09:54] LABS: CALCIUM 8.2 mg/dL (8.5-10.1)
[2023-03-20 09:55] LABS: BLOOD UREA NITROGEN 12.4 mg/dL (7-18); MAGNESIUM 1.9 mg/dL (1.8-2.4)
[2023-03-20 09:58] LABS: CREATININE 1.3 mg/dL (0.55-1.3); PHOSPHOROUS 3.4 mg/dL (2.5-4.9)
[2023-03-20 09:59] LABS: BILIRUBIN,TOTAL 0.4 mg/dL (0.2-1); TOT PROT 5.8 g/dl (6.4-8.2)
[2023-03-20 10:03] LABS: N-TERMINAL BNP 243.3 pg/ml (5-450)
[2023-03-20 10:33] LABS: ALBUMIN 2.6 g/dl (3.4-5.0)
[2023-03-20] MEDS: AZITHROMYCIN IVPB 500 MG/250 ML BAG IVPB SCH (11:06)
[2023-03-20] MEDS: SENNOSIDES 8.6MG TABLET (FP) PO SCH (21:55)
[2023-03-20] MEDS: ATORVASTATIN CA 80 MG TABLET (FP) PO SCH (21:55)
[2023-03-21] MEDS: TAMSULOSIN HCL 0.4 MG CAP PO SCH (09:51)
[2023-03-21] MEDS: AZITHROMYCIN IVPB 500 MG/250 ML BAG IVPB SCH (10:13)
[2023-03-21] MEDS: PANTOPRAZOLE 40 MG TABLET PO SCH (10:14)
[2023-03-21] MEDS: CEFTRIAXONE 1 GM in DEXTROSE 5%-WATER - 50 ML IVPB SCH (10:14)
[2023-03-21] MEDS: ENOXAPARIN NA (PORCINE) 40 MG/0.4 ML DISP.SYRIN SQ SCH (10:14)
[2023-03-21] MEDS: FINASTERIDE 5 MG TABLET (FP) PO SCH (10:14)
[2023-03-21] MEDS: LISINOPRIL 20 MG TABLET PO SCH (10:15)
[2023-03-21] MEDS: LACTOBACILLUS ACIDOPHILUS 1 TABLET PO SCH (10:15)
[2023-03-21] MEDS: BUDESONIDE/FORMETEROL FUMARATE 160/4.5 mcg INHALER IH SCH ×2 (10:15→21:04)
[2023-03-21] MEDS: amLODIPine BESYLATE 10 MG TABLET (FP) PO SCH (10:18)
[2023-03-21] MEDS: ATORVASTATIN CA 80 MG TABLET (FP) PO SCH (21:03)
[2023-03-21] MEDS: SENNOSIDES 8.6MG TABLET (FP) PO SCH (21:03)
[2023-03-22] MEDS ORDERED: TAMSULOSIN HCL 0.4 MG CAP PO SCH (08:30)
[2023-03-22 08:50] LABS: BASO % 0.7 % (0-2.0); EOS % 2.2 % (0-4.5); HEMATOCRIT 31.1 % (35.4-49); HEMOGLOBIN 10.8 GM/dL (11.7-16.9); LYMPH % 14.4 % (8-40); MCH 31.6 pg (25.7-33.7); MCHC 34.9 g/dl (32.0-35.9); MEAN CELL VOLUME 90.4 fl (80-96); MEAN PLT VOLUME 7.2 fl (7.5-11.1); MONO % 13.3 % (3.8-10.2); NEUT % 69.4 % (42.8-82.8); PLATELET COUNT 306 10^3/uL (134-434); RBC 3.43 M/mm3 (4.00-5.60); RDW 14.1 % (11.9-15.9); WHITE BLOOD COUNT 5.2 K/mm3 (4.0-10.0)
[2023-03-22 09:16] LABS: CALCIUM 8.8 mg/dL (8.5-10.1)
[2023-03-22 09:17] LABS: BLOOD UREA NITROGEN 12.1 mg/dL (7-18)
[2023-03-22 09:18] LABS: MAGNESIUM 1.9 mg/dL (1.8-2.4)
[2023-03-22 09:20] LABS: CREATININE 1.2 mg/dL (0.55-1.3)
[2023-03-22] MEDS: CEFTRIAXONE 1 GM in DEXTROSE 5%-WATER - 50 ML IVPB SCH (11:34)
[2023-03-22] MEDS: ENOXAPARIN NA (PORCINE) 40 MG/0.4 ML DISP.SYRIN SQ SCH (11:34)
[2023-03-22] MEDS: LACTOBACILLUS ACIDOPHILUS 1 TABLET PO SCH (11:35)
[2023-03-22] MEDS: PANTOPRAZOLE 40 MG TABLET PO SCH (11:35)
[2023-03-22] MEDS: LISINOPRIL 20 MG TABLET PO SCH (11:35)
[2023-03-22] MEDS: amLODIPine BESYLATE 10 MG TABLET (FP) PO SCH (11:35)
[2023-03-22] MEDS: AZITHROMYCIN IVPB 500 MG/250 ML BAG IVPB SCH (11:36)
[2023-03-22] MEDS: BUDESONIDE/FORMETEROL FUMARATE 160/4.5 mcg INHALER IH SCH (11:36)
[2023-03-22] MEDS: FINASTERIDE 5 MG TABLET (FP) PO SCH (11:46)
[2023-03-22 13:56] VITALS: BP 136/70; PULSE 97; RESP 20; TEMP 97.6
[2023-03-23] MEDS ORDERED: AZITHROMYCIN 250 MG TABLET PO SCH (10:00)
== END 2023-03-22 17:25 | disposition home or self-care (01) | DRG 139 ==
LOC: JER 04:47 → JERBED 07:18 → J7W 11:02
PROVIDERS: ADMIT Internal Medicine
DX: J18.9 Pneumonia, unspecified organism (principal); C34.91 Malignant neoplasm of unspecified part of right bronchus or lung; C79.51 Secondary malignant neoplasm of bone; R56.9 Unspecified convulsions; I10 Essential (primary) hypertension; D64.9 Anemia, unspecified; E78.5 Hyperlipidemia, unspecified; K21.9 Gastro-esophageal reflux disease without esophagitis; N40.0 Benign prostatic hyperplasia without lower urinary tract symptoms
CPT/HCPCS: 0241U-QW; 36415; 70450-TC; 70553-TC; 71045-TC-FY; 72125-TC; 80048; 80053; 81003; 82962; 83605; 83735; 83880; 84100; 84484; 85025; 85610; 85730; 86850; 86900; 86901; 87040; 87086; 93005; 93010; 94010; 94761; 97116-GP; 97162-GP; 99285-25; A9579

== ENCOUNTER 2023-06-18 19:31 | Inpatient (IN) | payer OTHER ==
[2023-06-18 20:03] VITALS: BMI 23.7
[2023-06-18] MEDS ORDERED: ACETAMINOPHEN 1000 MG/100 ML BAG IVPB ONE (21:11)
[2023-06-18] MEDS ORDERED: ACETAMINOPHEN INJECTION 100 ML IVPB ONE (21:41)
[2023-06-18 21:55] LABS: BASO % 0.8 % (0-2.0); EOS % 4.4 % (0-4.5); HEMATOCRIT 41.2 % (35.4-49); HEMOGLOBIN 13.9 GM/dL (11.7-16.9); LYMPH % 13.9 % (8-40); MCHC 33.6 g/dl (32.0-35.9); MEAN CELL VOLUME 86.3 fl (80-96); MEAN PLT VOLUME 7.1 fl (7.5-11.1); MONO % 12.4 % (3.8-10.2); NEUT % 68.5 % (42.8-82.8); PLATELET COUNT 268 10^3/uL (134-434); RBC 4.77 M/mm3 (4.00-5.60); WHITE BLOOD COUNT 6.9 K/mm3 (4.0-10.0)
[2023-06-18 22:14] LABS: POTASSIUM 5.3 mmol/L (3.5-5.1)
[2023-06-18 22:16] LABS: ALBUMIN 3.7 g/dl (3.4-5.0); BLOOD UREA NITROGEN 17.4 mg/dL (7-18); CALCIUM 8.8 mg/dL (8.5-10.1)
[2023-06-18] MEDS ORDERED: LIDOCAINE 5% TOPICAL PATCH TP ONE (22:17)
[2023-06-18 22:19] LABS: CREATININE 1.2 mg/dL (0.55-1.3)
[2023-06-18 22:21] LABS: BILIRUBIN,TOTAL 0.5 mg/dL (0.2-1)
[2023-06-18] MEDS ORDERED: LIDOCAINE 5% TOPICAL PATCH ONE (22:24)
[2023-06-18 22:40] LABS: ERYTHROCYTE SEDIMENTATION RATE 21 mm/hr (0-20)
[2023-06-18] MEDS ORDERED: morphine SULFATE 4 MG/ML VIAL IVPUSH ONE (22:48)
[2023-06-19] MEDS ORDERED: ALBUTEROL SO4 HFA INHALER IH PRN (03:14)
[2023-06-19] MEDS ORDERED: SENNOSIDES 8.8 MG/5 ML SYRUP PO ONE (03:29)
[2023-06-19] MEDS ORDERED: POLYETHYLENE GLYCOL (HEALTHYLAX) 3350 17 GM PACKET PO ONE (03:30)
[2023-06-19] MEDS ORDERED: oxyCODONE HCL 5 MG TABLET PO ONE (04:15)
[2023-06-19] MEDS ORDERED: ACETAMINOPHEN 325 MG TABLET (FP) PO ONE (04:15)
[2023-06-19] MEDS: ACETAMINOPHEN 1000 MG/100 ML BAG IVPB PRN ×2 (04:33→10:17)
[2023-06-19 09:59] LABS: BASO % 1.2 % (0-2.0); HEMOGLOBIN 13.8 GM/dL (11.7-16.9); LYMPH % 17.3 % (8-40); MCH 28.8 pg (25.7-33.7); MEAN CELL VOLUME 87.3 fl (80-96); MEAN PLT VOLUME 7.7 fl (7.5-11.1); MONO % 12.6 % (3.8-10.2); NEUT % 63.9 % (42.8-82.8); PLATELET COUNT 265 10^3/uL (134-434); RBC 4.81 M/mm3 (4.00-5.60); RDW 16.1 % (11.9-15.9); WHITE BLOOD COUNT 6.2 K/mm3 (4.0-10.0)
[2023-06-19] MEDS: amLODIPine BESYLATE 10 MG TABLET (FP) PO SCH (10:11)
[2023-06-19] MEDS: TAMSULOSIN HCL 0.4 MG CAP PO SCH (10:11)
[2023-06-19] MEDS: FINASTERIDE 5 MG TABLET (FP) PO SCH (10:11)
[2023-06-19] MEDS: PANTOPRAZOLE 40 MG TABLET PO SCH ×2 (10:11→21:27)
[2023-06-19 10:15] LABS: POTASSIUM 4.3 mmol/L (3.5-5.1)
[2023-06-19 10:17] LABS: CALCIUM 8.7 mg/dL (8.5-10.1)
[2023-06-19 10:18] LABS: ALBUMIN 3.6 g/dl (3.4-5.0); BLOOD UREA NITROGEN 17.6 mg/dL (7-18)
[2023-06-19 10:21] LABS: CREATININE 1.3 mg/dL (0.55-1.3); PHOSPHOROUS 3.2 mg/dL (2.5-4.9)
[2023-06-19 10:23] LABS: BILIRUBIN,TOTAL 0.6 mg/dL (0.2-1); TOT PROT 6.6 g/dl (6.4-8.2)
[2023-06-19] MEDS ORDERED: oxyCODONE HCL 5 MG TABLET PO PRN ×2 (12:03→12:40)
[2023-06-19] MEDS ORDERED: GABAPENTIN 100 MG CAPSULE PO SCH (12:15)
[2023-06-19] MEDS: BUDESONIDE/FORMETEROL FUMARATE 160/4.5 mcg INHALER IH SCH ×2 (12:28→21:30)
[2023-06-19] MEDS: LIDOCAINE 5% TOPICAL PATCH TP SCH (12:48)
[2023-06-19] MEDS ORDERED: ALBUTEROL SO4 0.083% IH SOL 2.5 MG/3 ML VIAL.NEB. NEB SCH (13:00)
[2023-06-19] MEDS: oxyCODONE HCL 5 MG TABLET PO PRN ×2 (14:24→21:27)
[2023-06-19 15:16] LABS: URINE COLOR YELLOW
[2023-06-19 15:17] LABS: URINE APPEARANCE CLEAR; URINE BILIRUBIN NEGATIVE (NEGATIVE); URINE GLUCOSE (UA) NEGATIVE (NEGATIVE); URINE KETONE NEGATIVE (NEGATIVE); URINE PROTEIN NEGATIVE (NEGATIVE); URINE UROBILINOGEN 0.2 mg/dL (0.2-1.0)
[2023-06-19 15:18] LABS: URINE LEUK ESTERASE NEGATIVE (NEGATIVE); URINE NITRITE NEGATIVE (NEGATIVE)
[2023-06-19] MEDS: ALBUTEROL SO4 0.083% IH SOL 2.5 MG/3 ML VIAL.NEB. NEB SCH ×2 (16:38→19:41)
[2023-06-19] MEDS: ATORVASTATIN CA 80 MG TABLET (FP) PO SCH (21:28)
[2023-06-19] MEDS: LIDOCAINE PATCH REMOVAL MC SCH (21:29)
[2023-06-19] MEDS: SENNOSIDES 8.8 MG/5 ML SYRUP PO SCH (21:31)
[2023-06-19] MEDS: LISINOPRIL 20 MG TABLET PO SCH (22:54)
[2023-06-19] MEDS: ENOXAPARIN NA (PORCINE) 40 MG/0.4 ML DISP.SYRIN SQ SCH (22:54)
[2023-06-19] MEDS: MELATONIN 5 MG TABLETS PO PRN (23:30)
[2023-06-20] MEDS: ALBUTEROL SO4 0.083% IH SOL 2.5 MG/3 ML VIAL.NEB. NEB SCH ×4 (08:25→20:00)
[2023-06-20] MEDS: oxyCODONE HCL 5 MG TABLET PO PRN ×3 (09:40→22:52)
[2023-06-20] MEDS: LIDOCAINE 5% TOPICAL PATCH TP SCH (09:41)
[2023-06-20] MEDS: ENOXAPARIN NA (PORCINE) 40 MG/0.4 ML DISP.SYRIN SQ SCH (09:41)
[2023-06-20] MEDS: amLODIPine BESYLATE 10 MG TABLET (FP) PO SCH (09:42)
[2023-06-20] MEDS: TAMSULOSIN HCL 0.4 MG CAP PO SCH (09:42)
[2023-06-20] MEDS: LISINOPRIL 20 MG TABLET PO SCH (09:42)
[2023-06-20] MEDS: PANTOPRAZOLE 40 MG TABLET PO SCH ×2 (09:43→21:33)
[2023-06-20] MEDS: FINASTERIDE 5 MG TABLET (FP) PO SCH (09:43)
[2023-06-20] MEDS: BUDESONIDE/FORMETEROL FUMARATE 160/4.5 mcg INHALER IH SCH ×2 (09:43→21:33)
[2023-06-20] MEDS ORDERED: LORazepam 0.5 MG TABLET PO ONE (11:47)
[2023-06-20] MEDS ORDERED: BISACODYL 10 MG SUPP.RECT PR ONE (11:48)
[2023-06-20] MEDS: ONDANSETRON 4 MG/2 ML VIAL IVPUSH PRN (13:45)
[2023-06-20] MEDS: ATORVASTATIN CA 80 MG TABLET (FP) PO SCH (21:32)
[2023-06-20] MEDS: LIDOCAINE PATCH REMOVAL MC SCH (21:33)
[2023-06-20] MEDS: SENNOSIDES 8.8 MG/5 ML SYRUP PO SCH (21:33)
[2023-06-21] MEDS: ALBUTEROL SO4 0.083% IH SOL 2.5 MG/3 ML VIAL.NEB. NEB SCH ×4 (07:47→20:19)
[2023-06-21] MEDS ORDERED: FENTANYL PATCH WASTE TD PRN (08:32)
[2023-06-21] MEDS ORDERED: fentaNYL 25mcg/hr PATCH.TD72 TD SCH (08:45)
[2023-06-21] MEDS: LIDOCAINE 5% TOPICAL PATCH TP SCH (09:38)
[2023-06-21] MEDS: ENOXAPARIN NA (PORCINE) 40 MG/0.4 ML DISP.SYRIN SQ SCH (09:38)
[2023-06-21] MEDS: POLYETHYLENE GLYCOL (HEALTHYLAX) 3350 17 GM PACKET PO SCH (09:38)
[2023-06-21] MEDS: amLODIPine BESYLATE 10 MG TABLET (FP) PO SCH (09:39)
[2023-06-21] MEDS: PANTOPRAZOLE 40 MG TABLET PO SCH ×2 (09:39→21:29)
[2023-06-21] MEDS: TAMSULOSIN HCL 0.4 MG CAP PO SCH (09:39)
[2023-06-21] MEDS: LISINOPRIL 20 MG TABLET PO SCH (09:39)
[2023-06-21] MEDS: FINASTERIDE 5 MG TABLET (FP) PO SCH (09:39)
[2023-06-21] MEDS: BUDESONIDE/FORMETEROL FUMARATE 160/4.5 mcg INHALER IH SCH ×2 (09:40→21:31)
[2023-06-21 10:12] LABS: BASO % 0.8 % (0-2.0); EOS % 3.5 % (0-4.5); HEMATOCRIT 38.4 % (35.4-49); HEMOGLOBIN 12.5 GM/dL (11.7-16.9); LYMPH % 12.4 % (8-40); MCH 28.7 pg (25.7-33.7); MCHC 32.6 g/dl (32.0-35.9); MEAN CELL VOLUME 88.2 fl (80-96); MEAN PLT VOLUME 7.2 fl (7.5-11.1); NEUT % 71.3 % (42.8-82.8); PLATELET COUNT 244 10^3/uL (134-434); RBC 4.36 M/mm3 (4.00-5.60); RDW 16.2 % (11.9-15.9); WHITE BLOOD COUNT 6.2 K/mm3 (4.0-10.0)
[2023-06-21 10:30] LABS: POTASSIUM 4.8 mmol/L (3.5-5.1)
[2023-06-21 10:32] LABS: ALBUMIN 3.3 g/dl (3.4-5.0); BLOOD UREA NITROGEN 22.7 mg/dL (7-18); CALCIUM 8.4 mg/dL (8.5-10.1); MAGNESIUM 2.1 mg/dL (1.8-2.4)
[2023-06-21 10:36] LABS: CREATININE 1.5 mg/dL (0.55-1.3)
[2023-06-21 10:37] LABS: BILIRUBIN,TOTAL 0.5 mg/dL (0.2-1); TOT PROT 6.4 g/dl (6.4-8.2)
[2023-06-21] MEDS: oxyCODONE HCL 5 MG TABLET PO PRN ×2 (15:00→21:29)
[2023-06-21] MEDS: LORazepam 1 MG TABLET PO PRN (15:43)
[2023-06-21] MEDS: MELATONIN 5 MG TABLETS PO PRN (21:29)
[2023-06-21] MEDS: ATORVASTATIN CA 80 MG TABLET (FP) PO SCH (21:30)
[2023-06-21] MEDS: SENNOSIDES 8.8 MG/5 ML SYRUP PO SCH (21:31)
[2023-06-21] MEDS: LIDOCAINE PATCH REMOVAL MC SCH (21:31)
[2023-06-21] MEDS ORDERED: DOCUSATE SODIUM 100 MG CAPSULE (FP) PO SCH (22:00)
[2023-06-21] MEDS: ONDANSETRON 4 MG/2 ML VIAL IVPUSH PRN (23:00)
[2023-06-22] MEDS: LORazepam 1 MG TABLET PO PRN (00:47)
[2023-06-22] MEDS: ALBUTEROL SO4 0.083% IH SOL 2.5 MG/3 ML VIAL.NEB. NEB SCH ×3 (07:59→15:19)
[2023-06-22 08:56] LABS: BASO % 0.5 % (0-2.0); HEMATOCRIT 39.5 % (35.4-49); HEMOGLOBIN 13.4 GM/dL (11.7-16.9); LYMPH % 10.1 % (8-40); MCH 29.4 pg (25.7-33.7); MEAN CELL VOLUME 86.4 fl (80-96); NEUT % 74.4 % (42.8-82.8); PLATELET COUNT 257 10^3/uL (134-434); RBC 4.57 M/mm3 (4.00-5.60); RDW 16.2 % (11.9-15.9)
[2023-06-22 09:13] LABS: POTASSIUM 4.9 mmol/L (3.5-5.1)
[2023-06-22 09:15] LABS: ALBUMIN 3.6 g/dl (3.4-5.0); BLOOD UREA NITROGEN 26.5 mg/dL (7-18); CALCIUM 8.5 mg/dL (8.5-10.1); MAGNESIUM 2.2 mg/dL (1.8-2.4)
[2023-06-22 09:18] LABS: CREATININE 1.6 mg/dL (0.55-1.3)
[2023-06-22 09:20] LABS: BILIRUBIN,TOTAL 0.7 mg/dL (0.2-1); TOT PROT 6.8 g/dl (6.4-8.2)
[2023-06-22] MEDS: ENOXAPARIN NA (PORCINE) 40 MG/0.4 ML DISP.SYRIN SQ SCH (09:47)
[2023-06-22] MEDS: LIDOCAINE 5% TOPICAL PATCH TP SCH (09:48)
[2023-06-22] MEDS: LISINOPRIL 20 MG TABLET PO SCH (09:48)
[2023-06-22] MEDS: TAMSULOSIN HCL 0.4 MG CAP PO SCH (09:48)
[2023-06-22] MEDS: POLYETHYLENE GLYCOL (HEALTHYLAX) 3350 17 GM PACKET PO SCH (09:48)
[2023-06-22] MEDS: oxyCODONE HCL 5 MG TABLET PO PRN (09:49)
[2023-06-22] MEDS: PANTOPRAZOLE 40 MG TABLET PO SCH (09:49)
[2023-06-22] MEDS: FINASTERIDE 5 MG TABLET (FP) PO SCH (09:49)
[2023-06-22] MEDS: amLODIPine BESYLATE 10 MG TABLET (FP) PO SCH (09:49)
[2023-06-22] MEDS: BUDESONIDE/FORMETEROL FUMARATE 160/4.5 mcg INHALER IH SCH (09:50)
[2023-06-22 15:11] VITALS: BP 139/70; PULSE 82; RESP 18; TEMP 97.8
== END 2023-06-22 18:00 | disposition home or self-care (01) | DRG 136 ==
LOC: JER 19:31 → JERBED 22:54 → J8W 06-19 02:52
PROVIDERS: ADMIT Internal Medicine; ATTEND Nurse Practitioner Acute Care
DX: C34.90 Malignant neoplasm of unspecified part of unspecified bronchus or lung (principal); C79.51 Secondary malignant neoplasm of bone; M54.9 Dorsalgia, unspecified; I10 Essential (primary) hypertension; E78.5 Hyperlipidemia, unspecified; N40.0 Benign prostatic hyperplasia without lower urinary tract symptoms
CPT/HCPCS: 36415; 70551-TC; 71046-TC-FY; 71260-TC; 72100-TC-FY; 72149-TC; 72170-TC-FY; 73502-TC-LT-FY; 73590-TC-LT-FY; 80053; 81003; 83735; 84100; 85025; 85651; 86140; 87086; 93005; 93010; 94640; 97116-GP; 97161-GP; 99285-25; A9579